=== PATIENT | female | born 1975 | race Caucasian/White ===

== ENCOUNTER 2018-08-14 00:50 | Observation (INO) ==
[2018-08-14] MEDS ORDERED: Naloxone 0.4 MG/ML INJ IVP PRN (04:15)
[2018-08-14 05:18] LABS: Bilirubin,Urine Negative (Negative); Blood,Urine Negative (Negative); Clarity,Urine Cloudy (Clear); Color,Urine Yellow (Yellow); Glucose,Urine (UA) Normal (Normal); Ketones,Urine Negative (Negative); Leukocyte Esterase,Urine Negative (Negative); Nitrite,Urine Negative (Negative); Protein,Urine Trace mg/dL (Neg-Trace); Specific Gravity,Urine 1.024 (1.010-1.025); Urobilinogen,Urine Normal (Normal)
[2018-08-14 05:20] LABS: Bacteria,Urine Moderate per hpf (None-Few); Hyaline Casts,Urine None Seen per lpf (None-Few); Squamous Epithelial Cell,Urine Many per lpf (None-Few); WBC,Urine 0-3 per hpf (0-3)
[2018-08-14 05:40] LABS: Basophils # 0.1 K/mcL (0.0-0.2); Basophils % 0.4 %; Eosinophils % 0.1 %; Hematocrit 41.8 % (35.3-44.9); Hemoglobin 14.6 g/dL (11.5-15.4); Immature Granulocytes % 0.4 % (0-4); Lymphocytes # 1.9 K/mcL (0.6-4.6); Lymphocytes % 14.5 %; Mean Corpuscular HGB Conc 34.9 g/dL (31.6-35.5); Mean Corpuscular Hemoglobin 30.9 pg (28.0-33.3); Mean Corpuscular Volume 88.4 fL (83.0-100.0); Mean Platelet Volume 9.3 fL (9.4-12.4); Monocytes % 7.7 %; Neutrophils # 9.9 K/mcL (1.6-8.9); Platelet Count 287 K/mcL (140-400); Red Blood Count 4.73 M/mcL (3.82-4.97); Red Cell Distribution Width 12.8 % (11.5-14.5); Segmented Neutrophils % 76.9 %
[2018-08-14 05:43] LABS: INR 1.1; Prothrombin Time 11.9 Seconds (9.4-12.1)
--- NOTE | 2018-08-14 05:50 | Internal Med History&Physical ---
Date of Encounter: 08/14/18 Time of Encounter: 05:45 Internal Medicine - H&P: HPI Chief complaint: Hypertension History of present illness: Ms. Jimenez is a 43 year old female with a past medical history of hypertension who initially presented to [facility] due to high blood pressure and tachycardia. Patient reports that her PCP has been tweaking her blood pressure medication for the past 2 months. Her PCP recently added losartan to her regimen one month ago. Prior to that she was only on amlodipine. Patient reports she woke up yesterday morning and sensed that her blood pressure high which typically manifests with pressure-like sensation in her neck. She notified her PCP who instructed her to double her amlodipine dose, however, her blood pressure continued to go up. When patient arrived to [facility] she was found to have a blood pressure of 180/114 with a heart rate of 145. Patient reports she has had these episodes before but never this high. Patient denies any recent stress or illness. She also reports intermittent chest pressure in the middle of her c hest that was nonradiating that occurred at the same time. Denies any shortness of breath, dizziness or lightheadedness, diaphoresis, blurry vision. Patient was diagnosed with hypertension 20 years ago at which time had seen a dimensional inspector for workup for secondary causes; workup had been negative and her hypertension was attributed to family history. Her diastolic blood pressure typically runs in the 90s to 100s and systolic in the 130s. No reports of any nausea vomiting or diarrhea. She states she has a significant family history of heart disease. She reports having a cousin who suddenly at the age of 17. She was told her heart was slightly enlarged but no other etiology was found. Patient does not smoke. No significant alcohol use. Patient was treated with 20 mg of IV labetalol with improvement in her blood pressure. Received loading dose of aspirin. Blood was relatively unremarkable including negative troponins 2. EKG showed sinus tachycardia with no ischemic changes. Patient was transferred for further evaluation. On arrival patient was hemodynamically stable. Heart rate was in the low 100s. No reports of chest pain at this time. Past Med Surg Social Fam HX - Social History Smoking Status: Never smoker Smokeless Tobacco Status: No Alcohol use: none Drug use: none - Family History Mother Living Status: Still Living Hx Family Cardiac Disorders: Yes (5 stents, NM) Hx Family Respiratory Disorders: Yes (COPD) Hx Family Autoimmune Disorders: Yes (Lupus) Father Living Status: Still Living Hx Family Cardiac Disorders: Yes (htn) Hx Family Respiratory Disorders: Yes (COPD, Black lung) Hx Family Endocrine Disorder: Yes (DM) Internal Medicine - H&P: Meds Allergy/AdvReac Type Severity Reaction Status Date / Time metoprolol [From Lopressor] AdvReac Nausea Verified 08/14/18 01:56 All Systems PM: A 10-system review of systems was performed and is negative for pertinent findings except as documented above in the HPI. - Constitutional Constitutional: no chills, no fever(s), no night sweats - EENT Eyes: no change in vision, no discharge, no pain, no photophobia Ears: no ear discharge, no ear pain, no tinnitus Nose, mouth and throat: no dysphagia, no nasal discharge, no neck pain, no sore throat - Cardiovascular Cardiovascular ROS IM: no chest pain, no diaphoresis, no dyspnea, no lightheadedness, no palpitations, no syncope - Respiratory Respiratory: no cough, no dyspnea, no wheezing, no excessive phlegm production - Gastrointestinal Gastrointestinal: no abdominal pain, no diarrhea, no hematemesis, no hematochezia, no melena, no nausea, no vomiting - Genitourinary Genitourinary: no change in urinary stream, no dysuria, no flank pain, no hematuria - Musculoskeletal Musculoskeletal ROS IM: no numbness, no tingling - Integumentary Integumentary IM: no rash, no unusual bruising - Neurological Neurological ROS: no confusion, no convulsions, no focal weakness, no numbness, no tingling, no tremor(s) - Hematologic/Lymphatic Hematologic/Lymphatic: no easy bruising - Constitutional Vitals: Temp Pulse Resp BP Pulse Ox 98.3 F 103 16 126/80 97 08/14/18 02:44 08/14/18 02:44 08/14/18 02:44 08/14/18 02:44 08/14/18 02:44 Exam: General: Alert and oriented 3 lying in bed in no acute distress Skin:Normal color, no rash, no lesions. HEENT:EOM, pupils equal, round and reactive. Cardiovascular:Normal S1 & S2, no rubs, murmurs or gallops. No JVD. Pulse regular. Lungs:Normal breath sounds, no wheezes or crackles. Abdomen:Soft, non-tender, no rigidity. Extremities:No deformity, no edema or tenderness, no joint swelling or clubbing. Neurological:Normal cognition and motor skills. Pulses:Carotid and radial pulses normal +2. Rest of the physical exam is non contributory Internal Med - H&P Results - Labs CBC & Chem 7: 08/14/18 05:07 08/14/18 05:07 Labs: Short CBC 08/14/18 Range/Units 05:07 WBC 12.8 H (4.3-11.1) K/mcL Hgb 14.6 (11.5-15.4) g/dL Hct 41.8 (35.3-44.9) % Plt Count 287 (140-400) K/mcL Neutrophils # 9.9 H (1.6-8.9) K/mcL Urine 08/14/18 Range/Units 05:07 Urine Color Yellow (Yellow) Urine Clarity Cloudy A (Clear) Urine pH 6.0 (5.0-8.0) pH Units Ur Specific [place] 1.024 (1.010-1.025) Urine Protein Trace (Neg-Trace) mg/dL Urine Glucose (UA) Normal (Normal) mg/dL - Assessment and plan (1) Hypertensive urgency Current Visit: Yes Status: Acute Assessment and plan: Patient presented to [facility] with a blood pressure of 182/112 with a heart rate of 145 associated with chest pressure and headache. Etiology otherwise unclear. No reports of blurry vision, shortness of breath, dizziness or lightheadedness. No evidence of end organ damage on laboratory workup. Patient reports extensive workup for secondary causes of her hypertension and tachycardia approximately 20 years ago. Patient received 20 mg of labetalol with gradual decrease in blood pressure. Patient currently hemodynamically stable. -Continue to monitor blood pressure -Resume home antihypertensives. (2) Chest pain Current Visit: Yes Status: Acute Assessment and plan: Patient reports substernal chest pressure, nonradiating, nonpleuritic, nonreproducible in the setting of hypertension. Patient has a significant family history of heart disease and A. fib. Patient does not smoke. EKG shows sinus tachycardia with no ischemic changes. Troponin negative 2. Patient received aspirin. Blood pressure currently stable and patient is chest pain- free -Continue telemetry -We will obtain an echocardiogram -We will obtain nuclear stress test Qualifiers: Ischemic chest pain type: unspecified angina pectoris type Qualified Code(s): I25.9 - Chronic ischemic heart disease, unspecified (3) Tachycardia Current Visit: Yes Status: Acute Assessment and plan: Sinus tachycardia in the 140s of unclear etiology. TSH within normal limits. Patient denies any recent illness or decreased by mouth intake. Currently currently improved though remains in the high 90s. Patient has a allergy to Lopressor. -Continue telemetry -We will give gentle hydration -Consider cardiology evaluation for further evaluation such as Holter monitor. (4) DVT prophylaxis Current Visit: Yes Status: Acute Assessment and plan: Ambulation ad hao. - Time Spent With Patient Total time spent is greater than 50% in coordination of care (as documented) at patient's floor/unit and/or counseling patient:
[2018-08-14 05:56] LABS: Troponin I < 0.03 ng/mL (< 0.04)
[2018-08-14 05:59] LABS: Alanine Aminotransferase 50 Units/L (7-52); Albumin 4.4 g/dL (3.5-5.7); Albumin/Globulin Ratio 1.7 (1.1-2.2); Alkaline Phosphatase 54 Units/L (34-104); Aspartate Amino Transferase 43 Units/L (13-39); BUN/Creatinine Ratio 20 (6-26); Bilirubin,Total 0.9 mg/dL (0.3-1.0); Blood Urea Nitrogen 13 mg/dL (6-20); Calcium 9.3 mg/dL (8.6-10.3); Carbon Dioxide 23 mEq/L (23-29); Chloride 106 mEq/L (98-107); Chol/HDL Ratio 3.1 (0-4.9); Cholesterol 161 mg/dL (< 200); Globulin 2.6 g/dL (2.4-3.5); Glucose 108 mg/dL (70-105); HDL Cholesterol 52 mg/dL (40-59); LDL Cholesterol,Calculated 96 mg/dL (0-99); Magnesium 2.3 mg/dL (1.6-2.6); Osmolality,Calculated 287 (280-300); Potassium 3.6 mEq/L (3.5-5.1); Sodium 138 mEq/L (136-145); Triglycerides 64 mg/dL (< 150); eGFR For Non-African Americans > 60 (> 60)
[2018-08-14] MEDS ORDERED: 0.9 % Sodium Chloride 250 ML IVC ONE (06:27)
[2018-08-14 06:51] LABS: Thyroid Stimulating Hormone 3.051 mcIU/mL (0.340-5.600)
--- NOTE | 2018-08-14 09:25 | Discharge Summary ---
<Ekta Peterson - Last Filed: 08/14/18 11:43> - NOTES TO OUTPATIENT PROVIDER Notes to Outpatient Provider: Stopped Amlodipine and started Cardizem due to elevated heart rate and elevated blood pressure. Created f/u appointment with cardiology. Orders not resulted at time of discharge: Pending orders 08/14/18 05:44 NM ann marie perf SPECT multi [NM] Routine EV echocardiogram Routine Date of Encounter: 08/14/18 Time of Encounter: 10:00 - Discharge Diagnosis (1) Hypertensive urgency Priority: Secondary Status: Acute (2) Chest pain Priority: Primary Status: Acute Qualifiers: Ischemic chest pain type: unspecified angina pectoris type Qualified Code(s): I25.9 - Chronic ischemic heart disease, unspecified (3) Tachycardia Priority: Secondary Status: Acute (4) DVT prophylaxis Priority: Secondary Status: Acute Hospital course: Ms. Jimenez is a 43 year old female with a past medical history of hypertension who initially presented to [facility] due to high blood pressure and tachycardia. Her blood pressure in the ED was 180/114 with a heart rate of 145. Patient was treated with 20 mg of IV labetalol with improvement in her blood pressure. Received loading dose of aspirin. Blood was relatively unremarkable including negative troponins 3. EKG showed sinus tachycardia with no ischemic changes. Stress test was normal. Patient was given IV hydration and tachycardia improved. Patient was asymptomatic upon discharge. Patient was discharged home with instructions to stop Amlodipine and start Cardizem 180mg daily and continue Losartan. Will start patient on Aspirin for now. Discussed following up with Cardiology. Patient was instructed to f/u with her PCP in 2-3 days to discuss blood pressure medications. Discharge discussed with: patient - Time Spent with Patient Total time spent providing and/or coordinating discharge services: - Discharge Medications Prescriptions: New RX: Diltiazem CD (24hr) [Cardizem CD] 180 mg PO DAILY #30 cap.er.24h RX: Losartan [Cozaar] 25 mg PO DAILY #0 tablet RX: Aspirin 81 mg PO DAILY #30 tab.chew Home Medications: RX: Aspirin 81 mg PO DAILY #30 tab.chew 08/14/18 [Rx] RX: Diltiazem CD (24hr) [Cardizem CD] 180 mg PO DAILY #30 cap.er.24h 08/14/18 [Rx] RX: Losartan [Cozaar] 25 mg PO DAILY #0 tablet 08/14/18 [Rx] Allergies/Adverse Reactions: Allergy/AdvReac Type Severity Reaction Status Date / Time metoprolol [From Lopressor] AdvReac Nausea Verified 08/14/18 01:56 Date of admission: 08/14/18 00:50 Primary care physician: Yamilka Mello CNP Discharging clinician: Chito Arriola Anticipated date of discharge: 08/14/18 - Constitutional Vitals: Temp Pulse Resp BP Pulse Ox 98.5 F 98 16 135/89 97 08/14/18 07:17 08/14/18 07:17 08/14/18 07:17 08/14/18 07:17 08/14/18 07:17 Exam: Constitutional: Alert, in no acute distress Head: Normocephalic, atraumatic Heart: Normal, regular rate and rhythm, no murmurs Lungs: Clear to auscultation, no wheezes, rales, or rhonchi Abdomen: Soft, nondistended, nontender, no guarding or rigidity. Extremities: No edema, No clubbing, radial pulse +2/4, capillary refill <2sec. Skin: Skin warm and dry, no lesions, no rashes, no jaundice Neurologic: Cranial nerves II through XII grossly intact, strength 5/5 in all extremities Psych: Cooperative with exam, good eye contact, cognitive function intact, speech clear, thought process logical, and goal directed - Patient Status Disposition: Home, Self-Care Condition: Good Functional capacity at discharge: independent ambulation Overall status at discharge: patient is progressing back to baseline - Discharge Instructions Instructions: Diltiazem (By mouth), Losartan (By mouth), Chest Pain (DC), Hypertensive Crisis (DC) Follow Up With: Yamilka Mello CNP [Primary Care Provider] - (appt web requested) Cardiology Day [Provider Group] Additional Instructions: Please follow-up with your primary care physician in 2-3 days. Please make an appointment with Cardiology for follow-up within the next couple of weeks. Please return to the ED if you pass out, confusion, chest pain, heart racing, weakness, or any other concerning signs or symptoms. Please return to the ED if top number of blood pressure is over 200. Concerning your blood pressure medication, we will stop the amlodipine(Norvasc) 5mg and start Cardizem 180mg daily. Continue taking Losartan 25mg daily. - Diet and Activity Activity: increase activity as tolerated Diet: advance to your usual diet <Chito Arriola - Last Filed: 08/14/18 15:39> Orders not resulted at time of discharge: Pending orders 08/14/18 05:44 NM ann marie perf SPECT multi [NM] Routine Date of Encounter: 08/14/18 - Discharge Diagnosis (1) Hypertensive urgency Status: Acute (2) Chest pain Status: Acute Qualifiers: Ischemic chest pain type: unspecified angina pectoris type Qualified Code(s): I25.9 - Chronic ischemic heart disease, unspecified (3) Tachycardia Status: Acute (4) DVT prophylaxis Status: Acute Hospital course: Ms. Jimenez is a 43 year old female - Time Spent with Patient Total time spent providing and/or coordinating discharge services: Date of admission: 08/14/18 00:50 Primary care physician: Yamilka Mello CNP - Constitutional Vitals: Temp Pulse Resp BP Pulse Ox 98.1 F 85 18 109/76 98 08/14/18 10:38 08/14/18 10:38 08/14/18 10:38 08/14/18 10:38 08/14/18 10:38 - Attending Attestation I examined this patient and my medical decision-making was reviewed with the Resident Physician Dr. Peterson. I agree with the documented findings, disposition and treatment plan as described except to the extent set forth below. Ms. Jimenez is a 43 year old female with a past medical history of hypertension who initially presented to [facility] due to high blood pressure and tachycardia. Patient reports that her PCP has been tweaking her blood pressure medication for the past 2 months. Her PCP recently added losartan to her regimen one month ago. Prior to that she was only on amlodipine. Patient reports she woke up yesterday morning and sensed that her blood pressure high which typically manifests with pressure-like sensation in her neck. Patient was admitted in the hospital and placed on radiation monitor. Patient serial troponin were negative. She did have nuclear stress test which came back is negative for ischemia. Patient mention that she did have history of tachycardia in the past for which they placed her metoprolol but she did not tolerate. Her thyroid function within normal limits. No clear etiology for tachycardia, it might be some anxiety related too. At this point I started her on Cardizem CD 180mg and stopped her Norvasc. Recommend to f/u with Card Dr. Navarro for further work up. She denied any syncopal episodes. Will discharge her home in a stable condition today. Gen: A, A, O x3 Chest: Diminished BS b/l, no crackles no rales Heart: S1S2+ RRR No murmurs Addendum entered and electronically signed by Chito Arriola MD 08/15/18 08:41: Pt was d/c home on 08/14/18. I did face to face interview / service more than 8 hrs apart since his admission by my colleague.
[2018-08-14] MEDS ORDERED: 0.9 % Sodium Chloride 1,000 ML IVC SCH (09:30)
[2018-08-14 10:39] VITALS: BP 109/76
[2018-08-14] MEDS ORDERED: Diltiazem CD (24hr) 180 MG CAPSULE PO SCH (11:30)
--- NOTE | 2018-08-15 08:59 | Electrocardiograph Report ---
[place] [id number] Test Date: 2018-08-14 Pat Name: Deepa Jimenez Department: 113 Room: 3B Gender: F Fountain Waitress/Waiter: : 1975 Requested By: Jaydon De La Vega Order Number: [id number] Reading MD: Mayuri Coley Measurements Intervals [place] Rate: 93 P: -5 [place]: 176 QRS: -36 QRSD: 93 T: 29 QT: 364 QTc: 415 Interpretive Statements SINUS RHYTHM MARKED LEFT AXIS DEVIATION INCOMPLETE RIGHT BUNDLE BRANCH BLOCK Electronically Signed On 08-15-2018 8:57:41 EST by Mayuri Coley
== END 2018-08-14 12:15 | disposition home or self-care (01) ==
LOC: 3BNU → SUATTDRO 00:50
PROVIDERS: ADMIT Internal Medicine; ATTEND Family Medicine